=== PATIENT | female | born 1995 | race African-American/Black ===

== ENCOUNTER 2016-08-14 20:00 | Emergency (ER) | payer SELFPAY ==
[~2016-08-14] VITALS: Ht 157.5 cm; Wt 62.6 kg
[2016-08-14 20:39] VITALS: BP 130/68
[2016-08-14 20:39] LABS: BILIRUBIN,URINE NEGATIVE (NEG); GLUCOSE,URINE NEGATIVE (NEG); NITRITE,URINE NEGATIVE (NEG); PROTEIN,URINE NEGATIVE (NEG-TRACE); UROBILINOGEN,URINE 0.2 mg/dL (0.2 mg/dL)
[2016-08-14] MEDS ORDERED: cefTRIAXone IM 250 MG VIAL IM ONE (20:45)
[2016-08-14] MEDS ORDERED: AZITHROMYCIN 250 MG TABLET. PO ONE (20:45)
[2016-08-14 20:51] LABS: BACTERIA,URINE 0 /HPF (0-FEW); RBC,URINE 0 /HPF (0-2); SQUAMOUS EPITHELIAL CELL,UR FEW /LPF; WBC,URINE 0 /HPF (0-4)
--- NOTE | 2016-08-14 20:51 | ED.ADGEN ---
Past Medical History Past Medical History: STD Past Surgical History: No Surgical History Alcohol Use: Occasionally Drug Use: Marijuana Adult General Chief Complaint Chief Complaint: ABDOMINAL PAIN HPI HPI Patient is a 21 year old -English female presents with pelvic pain and abnormal vaginal discharge and odor. Patient is concerned about possible STD exposure she has previously been treated for chlamydia. No fever chills, nausea vomiting or sweats. No flank pain, vaginal bleeding, dysuria, urinary frequency urgency. Last menstrual period ended one week ago. Review of Systems Review of Systems ROS as per hpi. Current Medications Current Medications Current Medications Medications (Trade) Dose Ordered Sig/Sudha Start Time Stop Time Status Last Admin Dose Admin Azithromycin (Zithromax) 1,000 mg 1X ONCE 08/14/16 20:45 08/14/16 20:46 DC 08/14/16 20:49 1,000 MG Ceftriaxone Sodium (Rocephin Im) 250 mg 1X ONCE 08/14/16 20:45 08/14/16 20:46 DC 08/14/16 20:48 250 MG Allergies Allergies Allergies Coded Allergies Type Severity Reaction Last Updated Verified No Known Drug Allergies 08/14/16 No Physical Exam Physical Exam Constitutional: Well developed, well nourished, no acute distress, non-toxic appearance. HENT: Normocephalic, atraumatic, bilateral external ears normal, oropharynx moist, no oral exudates, nose normal. Eyes: PERRL. Abdomen: Bowel sounds normal, soft, no tenderness. : External genitalia, no lesions. Vagina sinha, scant yellowish discharge, cervix closed with minimal discharge in vault. No bleeding or lesions. Back: No tenderness/ Extremities: No tenderness, no cyanosis, no clubbing, ROM intact, no edema. Neurologic: Alert and oriented X 3, normal motor function, normal sensory function, no focal deficits noted. Psychologic: Affect normal, judgement normal, mood normal. Current Patient Data Vital Signs Vital Signs Date Time Temp Pulse Resp B/P (MAP) Pulse Ox O2 Delivery O2 Flow Rate FiO2 08/14/16 20:39 98.8 77 16 130/68 (88) 99 Room Air 98.8 Lab Values Laboratory Tests Test 08/14/16 19:21 08/14/16 20:30 POC Urine HCG, Qualitative Hcg negative (Negative) Urine Collection Type Unknown Urine Color Yellow Urine Clarity Clear Urine pH 7.0 Urine Specific [place] >=1.030 Urine Protein Negative mg/dL (NEG-TRACE) Urine Glucose (UA) Negative mg/dL (NEG) Urine Ketones (Stick) Negative mg/dL (NEG) Urine Blood Negative (NEG) Urine Nitrite Negative (NEG) Urine Bilirubin Negative (NEG) Urine Urobilinogen Dipstick 0.2 mg/dL (0.2 mg/dL) Urine Leukocyte Esterase Negative (NEG) Urine RBC 0 /HPF (0-2) Urine WBC 0 /HPF (0-4) Urine Squamous Epithelial Cells Few /LPF Urine Bacteria 0 /HPF (0-FEW) Urine Mucus Slight /LPF Microbiology 08/14/16 Wet Prep - Final, Complete EKG EKG [] Radiology/Procedures Radiology/Procedures [] Course & Med Decision Making Course & Med Decision Making Pertinent Labs and Imaging studies reviewed. (See chart for details) Treatment provided for STDs. His cells present on wet prep. Antibiotics prescribed for treatment of bacterial vaginosis. Recommend follow-up PCP for additional screening.] Dragon Disclaimer Dragon Disclaimer This electronic medical record was generated, in whole or in part, using a voice recognition dictation system. CHRISTIAN LOVELACE DO August 14, 2016 20:51
== END 2016-08-14 21:02 | disposition home or self-care (01) ==
LOC: EDBD 20:00 → ER 20:00
DX: N76.0 Acute vaginitis (principal); B96.89 Other specified bacterial agents as the cause of diseases classified elsewhere; R10.2 Pelvic and perineal pain; F12.10 Cannabis abuse, uncomplicated
CPT/HCPCS: 81001; 84703; 87491; 87591; 96372; 99284; J0696; Q0111; Q0144; 81025

== ENCOUNTER 2016-09-03 23:14 | Emergency (ER) | payer SELFPAY ==
[~2016-09-03] VITALS: Ht 157.5 cm; Wt 62.6 kg
[2016-09-03 23:48] LABS: BILIRUBIN,URINE NEGATIVE (NEG); GLUCOSE,URINE NEGATIVE (NEG); NITRITE,URINE NEGATIVE (NEG); PH,URINE 5.5; PROTEIN,URINE NEGATIVE (NEG-TRACE); UROBILINOGEN,URINE 0.2 mg/dL (0.2 mg/dL)
[2016-09-03 23:53] LABS: RBC,URINE >40 /HPF (0-2); WBC,URINE OCC /HPF (0-4)
[2016-09-03 23:54] LABS: BACTERIA,URINE 0 /HPF (0-FEW); SQUAMOUS EPITHELIAL CELL,UR FEW /LPF
[2016-09-03] MEDS ORDERED: IBUP200T77 PO (23:54)
--- NOTE | 2016-09-03 23:54 | PHYS DOC ---
Past Medical History Past Medical History: STD, Other Additional Past Medical Histor: cyst Past Surgical History: No Surgical History Alcohol Use: Occasionally Drug Use: Marijuana Adult General Chief Complaint Chief Complaint: ABDOMINAL PAIN HPI HPI 21-year-old female presenting to the emergency department today with pelvic pain and vaginal bleeding. She was recently seen in [facility] in [place]. She reports being diagnosed with PID and she was given antibiotics to go home with however she has not filled them she reports she just got them filled today. She reports feeling mildly lightheaded and dizzy with vaginal bleeding. She reports saturating her tampon every 15 minutes for the past hour. He describes pain is sharp nonradiating intermittent and without alleviating or exacerbating factors. Review of systems is negative for chest pain shortness of breath fevers chills nausea vomiting. She denies diarrhea. All other review of systems is negative unless otherwise noted in history of present illness. Pertinent physical exam findings: Abdomen is soft and nontender palpation without rebound tenderness or guarding. Vaginal exam performed in the presence of a female nurse showed mild bleeding in the vaginal vault. No cervicitis or exudate present. No fluctuance in the adnexa. Otherwise the remainder of the exam is unremarkable. ED course: 21-year-old female presenting to the emergency department with pelvic pain. Vital signs unremarkable. Blood work obtained along with ultrasound of the pelvis. The patient states she has filled her medications and will take them for her PID treatment. Ultrasound shows complex ovarian cyst. I will refer her to our gynecology team within the next 4-5 days. They were to return if their symptoms worsened or if they were concerned for any reason. Face -to-face discharge instructions and return precautions were given. Patient's questions were answered to their satisfaction. Patient is comfortable plan. Review of Systems Review of Systems SEE ABOVE. Current Medications Current Medications Current Medications Medications (Trade) Dose Ordered Sig/Sudha Start Time Stop Time Status Last Admin Dose Admin Ibuprofen (Motrin) 400 mg 1X ONCE 09/04/16 00:00 09/04/16 00:01 DC 09/04/16 00:00 400 MG Allergies Allergies Allergies Coded Allergies Type Severity Reaction Last Updated Verified No Known Drug Allergies 08/14/16 No Physical Exam Physical Exam Constitutional: Well developed, well nourished, no acute distress, non-toxic appearance. [] HENT: Normocephalic, atraumatic, bilateral external ears normal, oropharynx moist, no oral exudates, nose normal. [] Eyes: PERRLA, EOMI, conjunctiva normal, no discharge. [] Neck: Normal range of motion, no tenderness, supple, no stridor. [] Cardiovascular:Heart rate regular rhythm, no murmur [] Lungs & Thorax: Bilateral breath sounds clear to auscultation [] Abdomen: see above Skin: Warm, dry, no erythema, no rash. [] Back: No tenderness, no CVA tenderness. [] Extremities: No tenderness, no cyanosis, no clubbing, ROM intact, no edema. [] Neurologic: Alert and oriented X 3, normal motor function, normal sensory function, no focal deficits noted. [] Psychologic: Affect normal, judgement normal, mood normal. [] Current Patient Data Vital Signs Vital Signs Date Time Temp Pulse Resp B/P (MAP) Pulse Ox O2 Delivery O2 Flow Rate FiO2 09/03/16 23:34 99.0 79 18 129/74 (92) 98 Room Air 99.0 Lab Values Laboratory Tests Test 09/03/16 22:37 09/03/16 23:15 09/03/16 23:53 POC Urine HCG, Qualitative Hcg negative (Negative) Urine Collection Type Unknown Urine Color Yellow Urine Clarity Clear Urine pH 5.5 Urine Specific [place] 1.020 Urine Protein Negative mg/dL (NEG-TRACE) Urine Glucose (UA) Negative mg/dL (NEG) Urine Ketones (Stick) Negative mg/dL (NEG) Urine Blood Large (NEG) Urine Nitrite Negative (NEG) Urine Bilirubin Negative (NEG) Urine Urobilinogen Dipstick 0.2 mg/dL (0.2 mg/dL) Urine Leukocyte Esterase Negative (NEG) Urine RBC >40 /HPF (0-2) Urine WBC Occ /HPF (0-4) Urine Squamous Epithelial Cells Few /LPF Urine Bacteria 0 /HPF (0-FEW) Urine Mucus Marked /LPF White Blood Count 7.3 x10^3/uL (4.0-11.0) Red Blood Count 4.07 x10^6/uL (3.50-5.40) Hemoglobin 11.8 g/dL (12.0-15.5) L Hematocrit 36.0 % (36.0-47.0) Mean Corpuscular Volume 89 fL (79-100) Mean Corpuscular Hemoglobin 29 pg (25-35) Mean Corpuscular Hemoglobin Concent 33 g/dL (31-37) Red Cell Distribution Width 14.2 % (11.5-14.5) Platelet Count 254 x10^3/uL (140-400) Neutrophils (%) (Auto) 66 % (31-73) Lymphocytes (%) (Auto) 26 % (24-48) Monocytes (%) (Auto) 5 % (0-9) Eosinophils (%) (Auto) 2 % (0-3) Basophils (%) (Auto) 1 % (0-3) Neutrophils # (Auto) 4.8 x10^3uL (1.8-7.7) Lymphocytes # (Auto) 1.9 x10^3/uL (1.0-4.8) Monocytes # (Auto) 0.4 x10^3/uL (0.0-1.1) Eosinophils # (Auto) 0.2 x10^3/uL (0.0-0.7) Basophils # (Auto) 0.0 x10^3/uL (0.0-0.2) Sodium Level 140 mmol/L (136-145) Potassium Level 3.5 mmol/L (3.5-5.1) Chloride Level 105 mmol/L (98-107) Carbon Dioxide Level 27 mmol/L (21-32) Anion Gap 8 (6-14) Blood Urea Nitrogen 6 mg/dL (7-20) L Creatinine 0.7 mg/dL (0.6-1.0) Estimated GFR (Cockcroft-Gault) 129.1 Glucose Level 122 mg/dL (70-99) H Calcium Level 8.7 mg/dL (8.5-10.1) Lipase 108 U/L (73-393) Laboratory Tests 09/03/16 23:53 Laboratory Tests 09/03/16 23:53 Microbiology 09/04/16 Wet Prep - Final, Complete EKG EKG [] Radiology/Procedures Radiology/Procedures [] Course & Med Decision Making Course & Med Decision Making Pertinent Labs and Imaging studies reviewed. (See chart for details) [] Dragon Disclaimer Dragon Disclaimer This electronic medical record was generated, in whole or in part, using a voice recognition dictation system. Departure Departure Impression: Primary Impression: Vaginal bleeding Additional Impression: Pelvic pain Disposition: HOME, SELF-CARE Condition: STABLE Referrals: NO PCP (PCP) SUSANNAH HERNANDEZ Jr, MD Patient Instructions: Pelvic Pain, Female, [id number] Additional Instructions: Thank you for allowing us to participate in your care today. Followup with your primary care physician in 3 days if your symptoms do not improve. If you do not have a primary care provider you can ask for a list of our primary care providers. Return to the emergency department you have any new or concerning findings. This should be evaluated by the primary care physician and any necessary consulting services for continued management within a few days after discharge. Return to emergency room if you have any new or concerning symptoms including but not limited to fever, chills, nausea, vomiting, intractable pain, any new rashes, chest pain, shortness of air, uncontrolled bleeding, difficulty breathing, and/or vision loss. Scripts Ibuprofen (IBUPROFEN) 200 Mg Tablet 200 MG PO PRN Q6HRS Y for INFLAMMATION, #30 TAB Prov: EVIE MILLER MD 09/03/16 Problem Qualifiers EVIE MLILER MD Sep 03, 2016 23:54
[2016-09-04] MEDS ORDERED: IBUPROFEN 400 MG TABLET. PO ONE
[2016-09-04 00:01] LABS: BASO % 1 % (0-3); EOS % 2 % (0-3); HEMOGLOBIN 11.8 g/dL (12.0-15.5); LYMPH # 1.9 x10^3/uL (1.0-4.8); LYMPH % 26 % (24-48); MEAN CORPUSCULAR HEMOGLOBIN 29 pg (25-35); MEAN CORPUSCULAR HGB CONC 33 g/dL (31-37); MEAN CORPUSCULAR VOLUME 89 fL (79-100); MONO % 5 % (0-9); NEUT % 66 % (31-73); PLATELET COUNT 254 x10^3/uL (140-400); RED BLOOD COUNT 4.07 x10^6/uL (3.50-5.40); RED CELL DISTRIBUTION WIDTH 14.2 % (11.5-14.5); WHITE BLOOD COUNT 7.3 x10^3/uL (4.0-11.0)
[2016-09-04 00:11] LABS: CALCIUM 8.7 mg/dL (8.5-10.1); CREATININE 0.7 mg/dL (0.6-1.0); GFR 129.1; POTASSIUM 3.5 mmol/L (3.5-5.1)
--- NOTE | 2016-09-04 02:19 | RAD ---
Pelvic ultrasound, transabdominal and transvaginal: Reason for examination: Pelvic pain. Being treated for PID. Seen at [facility] on Tuesday and told she had a cyst. Transabdominal ultrasound examination of the pelvis was performed. Uterus measures 7.4 x 3.6 x 3.9 cm transabdominally. The endometrium is not thickened at 7.3 mm. Cyst in cervix. The left ovary appears within normal size at 3.2 x 1.6 cm in greatest dimension. The right ovary shows a complex mass which appears to measure 7.0 x 5.7 cm in greatest dimension. There is vascular flow present in the right ovary. There does appear to be a small amount of fluid adjacent to the right ovary. Transvaginally, the uterus appears to be measuring 8.6 x 4.2 x 4.7 cm in greatest dimension. Endometrium is not thickened 6.7 mm. The left ovary measures 4.1 x 1.6 x 1.4 cm in greatest mention shows a cyst couple small follicles and normal blood flow. The right ovary is enlarged with a complex cystic lesion measuring 7.0 x 6.4 x 5.4 cm in greatest dimension. A small amount of fluid is seen adjacent to the right ovary. IMPRESSION: 7 x 6.4 x 5.4 cm complex cystic mass in the right ovary with small amount of fluid in the adjacent right pelvis. Cystadenoma/cystadenocarcinoma cannot be excluded. Electronically signed by: Neha Cage MD (09/04/2016 2:15 AM)
[2016-09-04 02:41] VITALS: BP 119/58
== END 2016-09-04 02:43 | disposition home or self-care (01) ==
LOC: ER 23:14
DX: N93.9 Abnormal uterine and vaginal bleeding, unspecified (principal); R10.2 Pelvic and perineal pain; R42 Dizziness and giddiness; F12.10 Cannabis abuse, uncomplicated
CPT/HCPCS: 36415; 76830; 76856; 80048; 81001; 81025; 83690; 85027; 99285; Q0111

== ENCOUNTER 2016-10-30 18:05 | Emergency (ER) | payer SELFPAY ==
[~2016-10-30 18:05] MED LIST: IBUP200T77 PO
[2016-10-30 18:22] LABS: BILIRUBIN,URINE NEGATIVE (NEG); GLUCOSE,URINE NEGATIVE (NEG); NITRITE,URINE NEGATIVE (NEG); PROTEIN,URINE NEGATIVE (NEG-TRACE); UROBILINOGEN,URINE 0.2 mg/dL (0.2 mg/dL)
[2016-10-30 18:26] LABS: BACTERIA,URINE 0 /HPF (0-FEW); RBC,URINE 0 /HPF (0-2); SQUAMOUS EPITHELIAL CELL,UR OCC /LPF; WBC,URINE 0 /HPF (0-4)
--- NOTE | 2016-10-30 18:31 | PHYS DOC ---
Past Medical History Past Medical History: STD, Other Additional Past Medical Histor: cyst,PID,bacterial vaginosis, Past Surgical History: No Surgical History Alcohol Use: Occasionally Drug Use: Marijuana Adult General Chief Complaint Chief Complaint: ABDOMINAL PAIN HPI HPI Patient is a 21 year old female who presents with vaginal discharge and lower pelvic pain. Since been present for approximately 2 weeks. She noticed some nausea, no vomiting. Some increase in urination frequency. No burning. No blood in her urine. No fever. Her menses is due "any time". Unknown if she is . She has had prior STI infections. Review of Systems Review of Systems Constitutional: Denies fever or chills Eyes: Denies change in visual acuity, redness, or eye pain HENT: Denies nasal congestion or sore throat Respiratory: Denies cough or shortness of breath Cardiovascular: No chest pain, No SOA. GI: see HPI : Some dysuria, no hematuria Musculoskeletal: Denies back pain or joint pain Integument: Denies rash or skin lesions Neurologic: Denies headache, focal weakness or sensory changes Endocrine: Denies polyuria or polydipsia Current Medications Current Medications Current Medications Medications (Trade) Dose Ordered Sig/Sudha Start Time Stop Time Status Last Admin Dose Admin Ceftriaxone Sodium (Rocephin Im) 250 mg 1X ONCE 10/30/16 19:00 10/30/16 19:01 DC 10/30/16 19:01 250 MG Allergies Allergies Allergies Coded Allergies Type Severity Reaction Last Updated Verified No Known Drug Allergies 08/14/16 No Physical Exam Physical Exam Constitutional: Well developed, well nourished, no acute distress, non-toxic appearance. HENT: Normocephalic, atraumatic, bilateral external ears normal, oropharynx moist, no oral exudates, nose normal. Eyes: PERRLA, EOMI, conjunctiva normal, no discharge. Neck: Normal range of motion, no tenderness, supple, no stridor. Cardiovascular:Heart rate regular rhythm, no murmur Lungs & Thorax: Bilateral breath sounds clear to auscultation Abdomen: Bowel sounds normal, soft, no tenderness, no masses, no pulsatile masses. No rebound or guarding. Pelvic exam: Grease Cup Filler present. External lesions noted normal external genitalia. No discharge from the os noted. No vaginal bleeding. Culture swabs were obtained. She does have pain on palpation of the cervix with cervical motion tenderness. No adnexal masses or tenderness noted. Skin: Warm, dry, no erythema, no rash. Back: No tenderness, no CVA tenderness. Extremities: No tenderness, no cyanosis, no clubbing, ROM intact, no edema. Neurologic: Alert and oriented X 3, normal motor function, normal sensory function, no focal deficits noted. Psychologic: Affect normal, judgement normal, mood normal. Current Patient Data Vital Signs Vital Signs Date Time Temp Pulse Resp B/P (MAP) Pulse Ox O2 Delivery O2 Flow Rate FiO2 10/30/16 19:04 79 16 115/76 (89) 100 Room Air 10/30/16 18:16 99.1 99.1 Lab Values Laboratory Tests Test 10/30/16 17:23 10/30/16 18:13 POC Urine HCG, Qualitative Hcg negative (Negative) Urine Collection Type Unknown Urine Color Colorless Urine Clarity Clear Urine pH 7.0 Urine Specific [place] <=1.005 Urine Protein Negative mg/dL (NEG-TRACE) Urine Glucose (UA) Negative mg/dL (NEG) Urine Ketones (Stick) Negative mg/dL (NEG) Urine Blood Negative (NEG) Urine Nitrite Negative (NEG) Urine Bilirubin Negative (NEG) Urine Urobilinogen Dipstick 0.2 mg/dL (0.2 mg/dL) Urine Leukocyte Esterase Negative (NEG) Urine RBC 0 /HPF (0-2) Urine WBC 0 /HPF (0-4) Urine Squamous Epithelial Cells Occ /LPF Urine Bacteria 0 /HPF (0-FEW) Microbiology 10/30/16 Wet Prep - Final, Complete Course & Med Decision Making Course & Med Decision Making Pertinent Labs and Imaging studies reviewed. (See chart for details) Differential or pelvic pain includes , ectopic , sexually transmitted infection, urinary tract infection, pyelonephritis. Urine sent. 1944: UCG negative and UA clear. CMT noted on exam. Will treat for STI. Cultures sent and pending. Rocephin IM and Doxycycline Rx. Given precautions and referral for follow up if she does not have a PCP. Dragon Disclaimer Dragon Disclaimer This electronic medical record was generated, in whole or in part, using a voice recognition dictation system. Departure Departure Impression: Primary Impression: Vaginal discharge Additional Impression: Acute cervicitis Disposition: HOME, SELF-CARE Condition: GOOD Referrals: UNKNOWN PCP NAME (PCP) vYonne WAITE MD Patient Instructions: Cervicitis Scripts Doxycycline Monohydrate (DOXYCYCLINE MONOHYDRATE) 100 Mg Capsule 1 CAP PO BID, #20 CAP Prov: PARAS EL MD 10/30/16 Problem Qualifiers PARAS EL MD Oct 30, 2016 18:31
[2016-10-30] MEDS ORDERED: DOXY100C14 PO (18:50)
[2016-10-30] MEDS ORDERED: cefTRIAXone IM 250 MG VIAL IM ONE (19:00)
[2016-10-30 19:04] VITALS: BP 115/76
== END 2016-10-30 19:20 | disposition home or self-care (01) ==
LOC: ER 18:05
DX: N72 Inflammatory disease of cervix uteri (principal); F12.10 Cannabis abuse, uncomplicated
CPT/HCPCS: 81001; 81025; 87491; 87591; 96372; 99284; J0696; Q0111

== ENCOUNTER 2016-12-02 15:53 | Emergency (ER) | payer SELFPAY ==
[~2016-12-02] VITALS: Ht 154.9 cm; Wt 65.8 kg
[~2016-12-02 15:53] MED LIST changes: +DOXY100C14 PO
[2016-12-02 16:26] VITALS: BP 131/76
--- NOTE | 2016-12-02 16:44 | ED.ADGEN ---
Past Medical History Past Medical History: STD, Other Additional Past Medical Histor: ovarian cyst,PID,bacterial vaginosis, Past Surgical History: No Surgical History Alcohol Use: Occasionally Drug Use: Marijuana Adult General Chief Complaint Chief Complaint: ABDOMINAL PAIN HPI HPI Patient is a 21 year old woman, history of ovarian cyst, who presents to the emergency department with a complaint of upper abdominal pain intermittently over the past week. Patient states the pain associated with nausea and vomiting , also intermittent loose brown stools. No blood in stool, emesis is nonbloody and nonbilious. No lower abdominal symptoms. States symptoms are sometimes worse with eating and drinking. Patient works in a daycare setting, and states that she is around children who have been ill, she denies any fevers or chills, denies any urinary complaints, any injuries, states she does smoke marijuana occasionally, and cigarettes. No swelling extremities, rashes, no shortness of breath or chest pain, states she has intermittent cough as well for which she's been using Mucinex. No sore throat or rhinorrhea. No headache, no weakness, numbness or tingling. Review of Systems Review of Systems Constitutional: Denies fever or chills. [] Eyes: Denies change in visual acuity. [] HENT: Denies nasal congestion or sore throat. [] Respiratory: Denies shortness of breath. [] Occasional nonproductive cough. Cardiovascular: Denies chest pain or edema. [] GI: Epigastric abdominal pain with nausea, vomiting, diarrhea, no bloody stools or bloody emesis. : Denies dysuria. [] Musculoskeletal: Denies back pain or joint pain. [] Integument: Denies rash. [] Neurologic: Denies headache, focal weakness or sensory changes. [] Endocrine: Denies polyuria or polydipsia. [] Lymphatic: Denies swollen glands. [] Psychiatric: Denies depression or anxiety. [] Current Medications Current Medications Current Medications Medications (Trade) Dose Ordered Sig/Sudha Start Time Stop Time Status Last Admin Dose Admin Multi-Ingredient Mouthwash/Gargle (Gi Cocktail Single Dose) 15 ml 1X ONCE 12/02/16 16:45 12/02/16 16:46 DC 12/02/16 16:54 15 ML Ondansetron HCl (Zofran) 4 mg 1X ONCE 12/02/16 16:45 12/02/16 16:46 DC 12/02/16 16:54 4 MG Allergies Allergies Allergies Coded Allergies Type Severity Reaction Last Updated Verified No Known Drug Allergies 12/02/16 No Physical Exam Physical Exam Constitutional: Well developed, well nourished, no acute distress, non-toxic appearance. [] HENT: Normocephalic, atraumatic, bilateral external ears normal, oropharynx moist, no oral exudates, nose normal. [] Eyes: PERRLA, EOMI, conjunctiva normal, no discharge. [] Neck: Normal range of motion, no tenderness, supple, no stridor. [] Cardiovascular:Heart rate regular rhythm, no murmur, S1, S2, no rubs or gallops. [] Lungs & Thorax: Bilateral breath sounds clear to auscultation, no wheezing, rhonchi, rales. No chest or crepitus or tenderness. [] Abdomen: Bowel sounds normal, soft, tenderness to palpation in the epigastric region, no rebound, rigidity, negative Muhammad sign, guarding, no masses, no pulsatile masses. [] Skin: Warm, dry, no erythema, no rash. [] Back: No tenderness, no CVA tenderness. [] Extremities: No tenderness, no cyanosis, no clubbing, ROM intact, no edema. Negative Homans sign. [] Neurologic: Alert and oriented X 3, normal motor function, normal sensory function, no focal deficits noted. [] Psychologic: Affect normal, judgement normal, mood normal. [] Current Patient Data Vital Signs Vital Signs Date Time Temp Pulse Resp B/P (MAP) Pulse Ox O2 Delivery O2 Flow Rate FiO2 12/02/16 16:26 84 18 131/76 (94) 100 Room Air 12/02/16 16:25 98.5 98.5 Lab Values Laboratory Tests Test 12/02/16 15:41 12/02/16 16:25 12/02/16 16:45 POC Urine HCG, Qualitative Hcg negative (Negative) Urine Color Yellow Urine Clarity Clear Urine pH 7.0 Urine Specific Brewster <=1.005 Urine Protein Negative mg/dL (NEG-TRACE) Urine Glucose (UA) Negative mg/dL (NEG) Urine Ketones (Stick) Negative mg/dL (NEG) Urine Blood Moderate (NEG) Urine Nitrite Negative (NEG) Urine Bilirubin Negative (NEG) Urine Urobilinogen Dipstick 0.2 mg/dL (0.2 mg/dL) Urine Leukocyte Esterase Negative (NEG) Urine RBC 0 /HPF (0-2) Urine WBC Occ /HPF (0-4) Urine Squamous Epithelial Cells Occ /LPF Urine Bacteria 0 /HPF (0-FEW) White Blood Count 7.5 x10^3/uL (4.0-11.0) Red Blood Count 4.01 x10^6/uL (3.50-5.40) Hemoglobin 11.6 g/dL (12.0-15.5) L Hematocrit 35.4 % (36.0-47.0) L Mean Corpuscular Volume 88 fL (79-100) Mean Corpuscular Hemoglobin 29 pg (25-35) Mean Corpuscular Hemoglobin Concent 33 g/dL (31-37) Red Cell Distribution Width 13.8 % (11.5-14.5) Platelet Count 270 x10^3/uL (140-400) Neutrophils (%) (Auto) 63 % (31-73) Lymphocytes (%) (Auto) 29 % (24-48) Monocytes (%) (Auto) 6 % (0-9) Eosinophils (%) (Auto) 2 % (0-3) Basophils (%) (Auto) 1 % (0-3) Neutrophils # (Auto) 4.7 x10^3uL (1.8-7.7) Lymphocytes # (Auto) 2.2 x10^3/uL (1.0-4.8) Monocytes # (Auto) 0.4 x10^3/uL (0.0-1.1) Eosinophils # (Auto) 0.2 x10^3/uL (0.0-0.7) Basophils # (Auto) 0.0 x10^3/uL (0.0-0.2) Sodium Level 140 mmol/L (136-145) Potassium Level 3.7 mmol/L (3.5-5.1) Chloride Level 103 mmol/L (98-107) Carbon Dioxide Level 29 mmol/L (21-32) Anion Gap 8 (6-14) Blood Urea Nitrogen 5 mg/dL (7-20) L Creatinine 0.8 mg/dL (0.6-1.0) Estimated GFR (Cockcroft-Gault) 110.7 BUN/Creatinine Ratio 6 (6-20) Glucose Level 83 mg/dL (70-99) Calcium Level 9.0 mg/dL (8.5-10.1) Total Bilirubin 0.1 mg/dL (0.2-1.0) L Aspartate Amino Transferase (AST) 21 U/L (15-37) Alanine Aminotransferase (ALT) 35 U/L (14-59) Alkaline Phosphatase 102 U/L (46-116) Total Protein 7.4 g/dL (6.4-8.2) Albumin 3.5 g/dL (3.4-5.0) Albumin/Globulin Ratio 0.9 (1.0-1.7) L Lipase 107 U/L (73-393) Laboratory Tests 12/02/16 16:45 Laboratory Tests 12/02/16 16:45 EKG EKG Not indicated.[] Radiology/Procedures Radiology/Procedures [][facility] [address] [place], [place] [id number] IMAGING REPORT Signed PATIENT: MARIE STEWART ACCOUNT: [id number] : 1995 LOCATION: ER AGE: 21 SEX: F EXAM STATUS: REG ER ORD. PHYSICIAN: CAESAR LION DO REASON: abd pain/n/v/ PROCEDURE: ACUTE ABDOMEN SERIES Indication abdominal pain. Nausea and vomiting. A single view of the chest was obtained as well as flat and upright films of the abdomen. No prior imaging is available. The heart and pulmonary vessels and mediastinum appear normal. The lungs are clear. The stomach is slightly distended with fluid and gas. There is no free air. The abdominal gas pattern is normal. No organomegaly or abnormal calculi are seen. Occasional calcifications are seen in the pelvis compatible with phleboliths. IMPRESSION: No acute or significant finding seen in the chest or abdomen on plain films DICTATED and SIGNED BY: CARLOS BARTNO MD DATE: 12/02/16 172 CC: CAESAR LION DO; NO PCP ~ Course & Med Decision Making Course & Med Decision Making Pertinent Labs and Imaging studies reviewed. (See chart for details) Patient complaining of upper abdominal symptoms, denies any vaginal symptoms urinary symptoms. After discussion will obtain laboratory studies and acute abdominal series, both imaging and laboratory studies did not reveal any concerning findings. Patient did receive a GI cocktail in the ED, is resting comfortably and reevaluation, with no further nausea or vomiting. Did discuss the patient that this symptoms may be due to a viral illness, as she does have sick contacts as stated, was given a GERD diet instructions along with prescription for Zofran and Bentyl, and clear and detailed return instructions and precautions. Patient voiced understanding and agreement with plan as stated , taking oral fluids and medication in the ED without issue, discharged home in stable condition with plan, prescriptions and precautions as above. Dragon Disclaimer Dragon Disclaimer This electronic medical record was generated, in whole or in part, using a voice recognition dictation system. Departure Impression: Primary Impression: Abdominal pain Disposition: 01 HOME, SELF-CARE Condition: IMPROVED Scripts Dicyclomine Hcl (BENTYL) 10 Mg Capsule 10 MG PO PRN QID Y for ABDOMINAL PAIN, #12 TAB Prov: CAESAR LION DO 12/02/16 Ondansetron Hcl (ZOFRAN) 4 Mg Tablet 1 TAB PO PRN Q8HRS Y for NAUSEA, #12 TAB Prov: CAESAR LION DO 12/02/16 CAESAR LION DO Dec 02, 2016 16:44
[2016-12-02] MEDS ORDERED: LIDO:MAALOX:DONNATAL 1:1:1 15 ML SINGLE DOSE SWSW ONE (16:45)
[2016-12-02] MEDS ORDERED: ONDANSETRON PF 4 MG/2 ML VIAL. IV ONE (16:45)
[2016-12-02 16:54] LABS: BILIRUBIN,URINE NEGATIVE (NEG); GLUCOSE,URINE NEGATIVE (NEG); NITRITE,URINE NEGATIVE (NEG); PROTEIN,URINE NEGATIVE (NEG-TRACE); UROBILINOGEN,URINE 0.2 mg/dL (0.2 mg/dL)
[2016-12-02 16:55] LABS: BASO % 1 % (0-3); EOS % 2 % (0-3); HEMATOCRIT 35.4 % (36.0-47.0); HEMOGLOBIN 11.6 g/dL (12.0-15.5); LYMPH # 2.2 x10^3/uL (1.0-4.8); LYMPH % 29 % (24-48); MEAN CORPUSCULAR HEMOGLOBIN 29 pg (25-35); MEAN CORPUSCULAR HGB CONC 33 g/dL (31-37); MEAN CORPUSCULAR VOLUME 88 fL (79-100); MONO % 6 % (0-9); NEUT % 63 % (31-73); PLATELET COUNT 270 x10^3/uL (140-400); RED BLOOD COUNT 4.01 x10^6/uL (3.50-5.40); RED CELL DISTRIBUTION WIDTH 13.8 % (11.5-14.5); WHITE BLOOD COUNT 7.5 x10^3/uL (4.0-11.0)
[2016-12-02 17:07] LABS: BACTERIA,URINE 0 /HPF (0-FEW); RBC,URINE 0 /HPF (0-2); SQUAMOUS EPITHELIAL CELL,UR OCC /LPF; WBC,URINE OCC /HPF (0-4)
[2016-12-02 17:27] LABS: CREATININE 0.8 mg/dL (0.6-1.0); GFR 110.7; POTASSIUM 3.7 mmol/L (3.5-5.1)
--- NOTE | 2016-12-02 17:28 | RAD ---
Indication abdominal pain. Nausea and vomiting. A single view of the chest was obtained as well as flat and upright films of the abdomen. No prior imaging is available. The heart and pulmonary vessels and mediastinum appear normal. The lungs are clear. The stomach is slightly distended with fluid and gas. There is no free air. The abdominal gas pattern is normal. No organomegaly or abnormal calculi are seen. Occasional calcifications are seen in the pelvis compatible with phleboliths. IMPRESSION: No acute or significant finding seen in the chest or abdomen on plain films
[2016-12-02 17:32] LABS: ALBUMIN 3.5 g/dL (3.4-5.0); ALBUMIN/GLOBULIN RATIO 0.9 (1.0-1.7); TOTAL BILIRUBIN 0.1 mg/dL (0.2-1.0); TOTAL PROTEIN 7.4 g/dL (6.4-8.2)
[2016-12-02] MEDS ORDERED: ONDA4TAB7 PO (17:49)
[2016-12-02] MEDS ORDERED: DICY10CA53 PO (17:49)
== END 2016-12-02 18:00 | disposition home or self-care (01) ==
LOC: ER 15:53
DX: R10.13 Epigastric pain (principal); R11.2 Nausea with vomiting, unspecified; R19.7 Diarrhea, unspecified; N73.9 Female pelvic inflammatory disease, unspecified
CPT/HCPCS: 36415; 74022; 80053; 81001; 81025; 83690; 85025; 96374; 99285; J2405

== ENCOUNTER 2017-05-14 03:41 | Emergency (ER) | payer SELFPAY ==
[2017-05-14 04:14] LABS: URINE HCG POC HCG NEGATIVE (Negative)
[2017-05-16 16:26] LABS: CHLAMYDIA PROBE Negative (Negative); GC PROBE Negative (Negative)
== END 2017-05-14 05:40 | disposition home or self-care (01) ==
LOC: ER 03:41
DX: N76.0 Acute vaginitis (principal); B96.89 Other specified bacterial agents as the cause of diseases classified elsewhere; F12.10 Cannabis abuse, uncomplicated
CPT/HCPCS: 81025; 87491; 87591; 99284; Q0111